=== PATIENT | female | born 1965 | race African-American/Black ===

== ENCOUNTER 2017-04-26 17:08 | Emergency (ER) | payer OTHER ==
--- NOTE | ~2017-04-26 | CT2 ---
[facility] A Service of [facility] RADIOLOGY TEXT RESULTS PATIENT: GERRI MOSCOSO LOCATION: SED : 65 UNIT #: [id number] AGE: [address]: MIGUEL ANGEL MANLEY SEX: F ORDER DR: [id number] [address] [address] [id number] MR#: [id number] Acc #: [id number] NAME: GERRI MOSCOSO : 1965 SEX: F STUDY DATE/TIME: 04/26/2017 19:46 UNIT: SED ROOM: STUDY DESCRIPTION: CT Abd and Pelv W Cont Attending Physician: Miguel Angel Manley Ordering Physician: Physician Non-Staff Primary Care Physician: Angela Wolff A.P.R.N. MEDICAL IMAGING REPORT This report is preliminary unless electronic signature is present. EXAM CT abdomen and pelvis, 04/26/2017 COMPARISON None. HISTORY Nausea and constipation. Incontinence. Symptoms for [address] abdomen and pelvis with IV contrast with multiplanar reformats. This CT exam was performed with one or more of the following radiation dose reduction techniques: automatic exposure control, adjustment of mA and/or kV according to patient size, and iterative reconstruction. FINDINGS The lung bases are normal. ABDOMEN: The liver and gallbladder and spleen and pancreas and kidneys and adrenal glands are normal. The aorta is normal in caliber. There is a moderate to large amount of stool throughout the colon but no evidence to suggest bowel obstruction. There is no intraabdominal mass, inflammatory change or abnormal fluid collection. PELVIS: The uterus has been removed. There is no hernia or bowel obstruction. There is no acute bony abnormality. IMPRESSION Negative CT abdomen and pelvis. There is a large amount of stool throughout the colon but no evidence to suggest renal, bowel or biliary [facility] A Service of [facility] RADIOLOGY TEXT RESULTS PATIENT: GERRI MOSCOSO LOCATION: SED : 65 UNIT #: [id number] AGE: [address]: MIGUEL ANGEL MANLEY SEX: F ORDER DR: obstruction or other acute abnormality. Dictated by... Joey Medrano M.D. THIS IS AN ELECTRONICALLY VERIFIED REPORT Joey Medrano M.D. at 04/29/2017 5:32 PM TRAVON/samantha TD: 04/27/2017 03:54 JOB #: [id number] MEDICAL IMAGING REPORT Page 1 of 1
[~2017-04-26 17:08] MED LIST: CALCIUM 500 + D1 TAB PO; GLUCOPHAGE XR500 MG PO; GLUCOVANCE 5/501 TA1 PO; NEURONTIN PO; PERCOCET5/325 PO; PROPRANOLOL PO; RISPERIDONE PO; SYNTHROID PO; TRAZODONE PO; ZYRTEC PO
[2017-04-26] MEDS ORDERED: METFORMIN (17:27)
[2017-04-26] MEDS ORDERED: WELLBUTRIN PO (17:28)
[2017-04-26] MEDS ORDERED: JARDIANCE10 MG PO (17:28)
[2017-04-26] MEDS ORDERED: LANTUS100 U/ML (17:28)
[2017-04-26] MEDS ORDERED: COZAAR (17:28)
[2017-04-26] MEDS ORDERED: GLUCOTROL (17:28)
[2017-04-26] MEDS ORDERED: VICTOZA0.6 MG/0.1 (17:28)
[2017-04-26] MEDS ORDERED: PROTONIX (17:28)
[2017-04-26] MEDS ORDERED: XYZAL5 MG (17:29)
[2017-04-26] MEDS ORDERED: EFFEXOR (17:30)
[2017-04-26 17:52] LABS: URINE APPEARANCE CLEAR; URINE BILIRUBIN NEG (NEG); URINE COLOR YELLOW; URINE GLUCOSE 300 MG/DL (NORM); URINE KETONE NEG (NEG); URINE LEUKOCYTE ESTERASE NEG (NEG); URINE NITRATE NEG (NEG); URINE PROTEIN NEG (NEG); URINE SOURCE CLEAN CATCH; URINE SPECIFIC GRAVITY <=1.005 (1.003-1.035); URINE UROBILINOGEN 0.2 MG/DL (NORM)
[2017-04-26 17:53] LABS: MICRO INDICATED? NO; URINE BLOOD NEG (NEG)
[2017-04-26 18:48] LABS: BASOPHIL# 0.2 X10e3 (0-0.3); BASOPHIL% 1.7 % (0-2.5); EOSINOPHIL# 0.1 X10e3 (0-0.7); EOSINOPHIL% 1.3 % (0.0-7.0); HEMOGLOBIN 14.3 gm/dL (12.0-16.0); LYMPHOCYTE% 39.3 % (17.0-45.0); MEAN CORPUSCULAR HGB CONC 33.3 g/dL (30-36); MEAN PLATELET VOLUME 9.5 FL (6.5-11.5); MONOCYTE# 0.6 X10e3 (0-1.0); MONOCYTE% 6.3 % (3.0-12.0); NEUTROPHIL# 5.2 X10e3 (1.5-7.1); NEUTROPHIL% 51.4 % (40-75); PLATELET COUNT 189 X10e3 (140-420); RED BLOOD COUNT 4.95 X10e (3.90-5.30); RED CELL DISTRIBUTION WIDTH 15.5 % (11.0-15.5); WHITE BLOOD COUNT 10.1 X10e3 (4.0-10.5)
[2017-04-26 18:50] LABS: DIFF IND NO
[2017-04-26 19:06] LABS: ALBUMIN SERUM 3.6 g/dL (3.5-5.0); BILIRUBIN,TOTAL 0.1 mg/dL (0.2-2.0); BUN/CREATININE RATIO 17.14; CALCIUM SERUM 8.7 mg/dL (8.4-10.2); CREATININE SERUM 0.7 mg/dL (0.6-1.4); GLOM FILT RATE Estimated 115.5 mL/min (>60); POTASSIUM 3.8 mmol/L (3.5-5.1); PROTEIN TOTAL SERUM 6.4 g/dL (6.0-8.3)
== END 2017-04-26 21:30 | disposition home or self-care (01) ==
LOC: SED 17:08
PROVIDERS: Physician Assistant
DX: K59.00 Constipation, unspecified (principal); R11.0 Nausea; F17.210 Nicotine dependence, cigarettes, uncomplicated; K21.9 Gastro-esophageal reflux disease without esophagitis; E11.9 Type 2 diabetes mellitus without complications; E78.5 Hyperlipidemia, unspecified; I10 Essential (primary) hypertension; E03.9 Hypothyroidism, unspecified; Z90.710 Acquired absence of both cervix and uterus; Z98.51 Tubal ligation status; Z90.89 Acquired absence of other organs; Z79.4 Long term (current) use of insulin; Z79.899 Other long term (current) drug therapy
CPT/HCPCS: 36415; 74177; 80053; 81003; 83690; 85025; 96372; 96374; 99284; J0500; J2405; Q9967